=== PATIENT | male | born 1990 | race Two or more races ===

== ENCOUNTER 2018-04-20 19:33 | Emergency (ER) | payer OTHER ==
[2018-04-20] MEDS ORDERED: levETIRAcetam 500 MG/5 ML INJECTION VIAL IVPB ONE ×2 (19:45→19:55)
[2018-04-20 19:46] VITALS: BP 119/52; PULSE 74; TEMP 98.2; BMI 25.8
--- NOTE | 2018-04-20 19:51 | PDOC ---
History of Present Illness - General Chief Complaint: Seizure Stated Complaint: SEIZURE Time Seen by Provider: 04/20/18 19:39 History Source: EMS, Family Exam Limitations: Clinical Condition - History of Present Illness Initial Comments: 04/20/18 19:51 The patient is a 27M with a PMH of seizures who presents to the ER BIBA after having a witnessed seizure. The girlfriend is in the room and is providing the history as the patient is post-ictal and cannot provide any history. The girlfriend states that the patient told her that he was feeling a seizure coming on. She sat him down in a chair and she noted that his head turned and his R arm became contracted, then he had generalized shaking and was immediately post ictal. She stated that she is unsure if he urinated or defecated on himself but he did bite his tongue. Past History - Past Medical History Allergies/Adverse Reactions: Allergies Allergy/AdvReac Type Severity Reaction Status Date / Time No Known Allergies Allergy Verified 04/20/18 19:46 Home Medications: Ambulatory Orders levETIRAcetam [Keppra -] 500 mg PO BID 04/20/18 COPD: No Seizures: Yes - Suicide/Smoking/Psychosocial Hx Smoking History: Never smoked Review of Systems - Review of Systems Able to Perform ROS?: No (pt is post-ictal) Is the patient limited Singaporean proficient: No *Physical Exam - Vital Signs Last Vital Signs Temp Pulse Resp BP Pulse Ox 98.2 F 74 18 119/52 95 04/20/18 19:44 04/20/18 19:44 04/20/18 19:44 04/20/18 19:44 04/20/18 19:44 - Physical Exam Comments: 04/20/18 20:00 GENERAL: Well developed, well nourished. Asleep, arousable to physical and verbal stimulation. Vomit noted on shirt. HEENT: Normocephalic, atraumatic. Hearing grossly normal. Superficial tongue laceration on anterior lateral tongue. Moist mucous membranes. PERRLA, EOMI. No conjunctival pallor. Sclera are non-icteric. NECK: Supple. Full ROM. No JVD. CARDIOVASCULAR: Regular rate and rhythm. No murmurs, rubs, or gallops. PULMONARY: No evidence of respiratory distress. Lungs clear to auscultation bilaterally. No wheezing, rales or rhonchi. ABDOMINAL: Soft. Non-tender. Non-distended. No rebound or guarding. MUSCULOSKELETAL: Normal range of motion at all joints. No bony deformities or tenderness. EXTREMITIES: No cyanosis. No clubbing. No edema. No calf tenderness or swelling. SKIN: Warm and dry. Normal capillary refill. No rashes. No jaundice. NEUROLOGICAL: Asleep, but arousable to physical and verbal stimulation. PSYCHIATRIC: Cooperative. Lethargic. ED Treatment Course - LABORATORY CBC & Chemistry Diagram: 04/20/18 19:50 04/20/18 23:10 Medical Decision Making - Medical Decision Making 04/20/18 20:02 The patient is a 27M with a PMH of seizures on Keppra who was BIBA after having a witnessed seizure. He did not hit his head. His girlfriend states that he did not take his medications today. Will order labs. Pending labwork. Will give keppra. 04/20/18 21:25 CBC WNL. CMP showing MG and Cr bumps with CK of 767, likely 2/2 seizure. WIll give fluids and reassess. 04/20/18 23:55 Repeat CMP showing normalization of electrolyte abnormalities. Pt awake and alert. Will d/c with neurology f/u. *DC/Admit/Observation/Transfer Diagnosis at time of Disposition: Seizure - Discharge Dispostion Disposition: HOME Condition at time of disposition: Stable Decision to Admit order: No - Referrals Referrals: Abram Connolly DO [Staff Physician] - - Patient Instructions Printed Discharge Instructions: DI for Seizure Disorder -- Adult Additional Instructions: Please follow up with your primary care physician in 2-3 days. Also, follow up with the neurologist, Dr. Connolly, in 1-3 days as well. Please return to the ER if you have any signs or symptoms of chest pain, shortness of breath, uncontrollable fever, chills, nausea, vomiting, numbness, tingling, or weakness in any part of your body, changes in vision, or slurred speech. Please take your medications as prescribed. Please return to the ER if symptoms persist, worsen, or new symptoms arise. - Post Discharge Activity
[2018-04-20 20:06] LABS: BASO % 0.8 % (0-2.0); EOS % 1.5 % (0-4.5); HEMATOCRIT 46.1 % (35.4-49); HEMOGLOBIN 14.8 GM/dL (11.7-16.9); MCH 27.1 pg (25.7-33.7); MCHC 32.2 g/dl (32.0-35.9); MEAN CELL VOLUME 84.3 fl (80-96); MEAN PLT VOLUME 7.6 fl (7.5-11.1); MONO % 8.4 % (3.8-10.2); NEUT % 34.3 % (42.8-82.8); PLATELET COUNT 254 K/MM3 (134-434); RBC 5.46 M/mm3 (4.00-5.60); RDW 13.5 % (11.9-15.9); WHITE BLOOD COUNT 11.2 K/mm3 (4.0-10.0)
--- NOTE | 2018-04-20 20:16 | PDOC ---
Attending Attestation - Physicial Exam PE: 04/20/18 21:44 GENERAL: Well-appearing, well-nourished. No apparent distress. HEENT: Normocephalic, atraumatic. PERRL, EOM intact. CARDIOVASCULAR: Normal S1, S2. Regular rate and rhythm. PULMONARY: Clear to auscultation bilaterally. ABDOMEN: Soft, non-distended, non-tender. EXTREMITIES: Normal ROM in all four extremities. No gross deformities. SKIN: Warm, dry. No rash NEUROLOGICAL: No focal neurological deficits. <Daniela Adam - Last Filed: 04/20/18 21:44> - Resident Resident Name: Thanh Groves - ED Attending Attestation I have performed the following: I have examined & evaluated the patient, The case was reviewed & discussed with the resident, I agree w/resident's findings & plan, Exceptions are as noted - HPI HPI: 04/20/18 20:14 Known h/o seizure, had witnessed seizure. Witness by girlfriend. Takes Keppra.. Didn't take it this evening. Didn't hit his head - Medical Decision Making 04/21/18 19:17 Pt was treated and released <Jon Mishra - Last Filed: 04/21/18 19:17>
[2018-04-20 20:38] LABS: ALBUMIN 4.6 g/dl (3.4-5.0); ALK PHOS 65 U/L (45-117); ANION GAP 22 MMOL/L (8-16); BILIRUBIN,TOTAL 0.2 mg/dL (0.2-1.0); BLOOD UREA NITROGEN 18 mg/dL (7-18); CALCIUM 9.2 mg/dL (8.5-10.1); CHLORIDE 106 mmol/L (98-107); CO2 13 mmol/L (21-32); CREATININE 1.4 mg/dL (0.7-1.3); GLUCOSE,RANDOM 114 mg/dL (74-106); MAGNESIUM 3.1 mg/dL (1.8-2.4); POTASSIUM 4.3 mmol/L (3.5-5.1); SGOT/AST 42 U/L (15-37); SGPT/ALT 50 U/L (12-78); SODIUM 141 mmol/L (136-145); TOT PROT 8.6 g/dl (6.4-8.2)
[2018-04-20] MEDS ORDERED: SODIUM CHLORIDE 0.9% 1000 ML INFUS.BAG IV ONE (20:44)
[2018-04-20 21:08] LABS: PLATELET ESTIMATE ADEQUATE
[2018-04-20] MEDS ORDERED: ACETAMINOPHEN 1000 MG/100 ML VIAL (NON FORMULARY) IVPB ONE (21:49)
[2018-04-20] MEDS ORDERED: ACETAMINOPHEN INJECTION 100 ML IVPB ONE (21:56)
[2018-04-20 23:44] LABS: ALBUMIN 3.9 g/dl (3.4-5.0); ANION GAP 5 MMOL/L (8-16); BILIRUBIN,TOTAL 0.2 mg/dL (0.2-1.0); BLOOD UREA NITROGEN 16 mg/dL (7-18); CALCIUM 8.2 mg/dL (8.5-10.1); CHLORIDE 108 mmol/L (98-107); CO2 27 mmol/L (21-32); CREATININE 1.2 mg/dL (0.7-1.3); GLUCOSE,RANDOM 115 mg/dL (74-106); POTASSIUM 3.9 mmol/L (3.5-5.1); SGPT/ALT 41 U/L (12-78); SODIUM 140 mmol/L (136-145); TOT PROT 7.2 g/dl (6.4-8.2)
[2018-04-20 23:46] LABS: ALK PHOS 51 U/L (45-117); SGOT/AST 36 U/L (15-37)
== END 2018-04-21 00:26 | disposition home or self-care (01) ==
LOC: JER 19:33
PROC: 3E033NZ Introduction of Analgesics, Hypnotics, Sedatives into Peripheral Vein, Percutaneous Approach (ICD-10-PCS; principal; 2018-04-20)
PROC: 3E033GC Introduction of Other Therapeutic Substance into Peripheral Vein, Percutaneous Approach (ICD-10-PCS; 2018-04-20)
DX: G40.909 Epilepsy, unspecified, not intractable, without status epilepticus (principal)
CPT/HCPCS: 36415; 80053; 82550; 82553; 83735; 85025; 99282-25; J0131; J7030

== ENCOUNTER 2018-10-16 16:51 | Emergency (ER) | payer OTHER ==
[2018-10-16 17:31] VITALS: BP 118/75; PULSE 88; TEMP 97; BMI 18.4
--- NOTE | 2018-10-16 17:31 | PDOC ---
Rapid Medical Evaluation Chief Complaint: Laceration Time Seen by Provider: 10/16/18 17:29 Medical Evaluation: Allergies Allergy/AdvReac Type Severity Reaction Status Date / Time No Known Allergies Allergy Verified 10/16/18 17:29 10/16/18 17:29 I have performed a brief in-person evaluation of this patient. The patient presents with a chief complaint of: L 3rd lac while at work Pertinent physical exam findings:superficial lac I have ordered the following:nothing The patient will proceed to the ED for further evaluation. Discharge Disposition - Diagnosis Finger laceration Qualifiers: Encounter type: initial encounter Finger: middle finger Damage to nail status: without damage Foreign body presence: without foreign body Laterality: left Qualified Code(s): S61.213A - Laceration without foreign body of left middle finger without damage to nail, initial encounter - Referrals - Patient Instructions - Post Discharge Activity
--- NOTE | 2018-10-16 17:55 | PDOC ---
History of Present Illness - General Chief Complaint: Laceration Stated Complaint: LAC Time Seen by Provider: 10/16/18 17:29 History Source: Patient Exam Limitations: No Limitations - History of Present Illness Initial Comments: 10/16/18 17:50 Patient came to evaluation left third digit laceration. Slipped while using a knife at work and inside the lateral aspect of 3rd middle digit Occurred: reports: just prior to arrival, this afternoon Severity: reports: mild Pain Location: reports: upper extremity Past History - Travel Traveled outside of the country in the last 30 days: No Close contact w/someone who was outside of country & ill: No - Past Medical History Allergies/Adverse Reactions: Allergies Allergy/AdvReac Type Severity Reaction Status Date / Time No Known Allergies Allergy Verified 10/16/18 17:31 Home Medications: Ambulatory Orders levETIRAcetam [Keppra -] 500 mg PO BID 04/20/18 levETIRAcetam [Keppra -] 500 mg PO BID #14 tablet 10/16/18 COPD: No Seizures: Yes - Suicide/Smoking/Psychosocial Hx Smoking History: Never smoked Have you smoked in the past 12 months: No Information on smoking cessation initiated: No Hx Alcohol Use: No Drug/Substance Use Hx: No Review of Systems - Review of Systems Able to Perform ROS?: Yes Is the patient limited Hungarian proficient: Yes Constitutional: Yes: Symptoms Reported, See HPI HEENTM: No: Symptoms Reported Musculoskeletal: Yes: Symptoms Reported, See HPI Integumentary: Yes: Symptoms Reported, See HPI, Lesions All Other Systems: Reviewed and Negative *Physical Exam - Vital Signs Last Vital Signs Temp Pulse Resp BP Pulse Ox 97.0 F L 88 16 118/75 100 10/16/18 17:00 10/16/18 17:00 10/16/18 17:00 10/16/18 17:00 10/16/18 17:00 - Physical Exam General Appearance: Yes: Nourished, Appropriately Dressed, Apparent Distress HEENT: positive: DREA, Normal ENT Inspection, TMs Normal, Pharynx Normal Neck: positive: Supple Extremity: positive: Normal Capillary Refill, Normal Range of Motion, Other (on centimeter laceration to the middle phalanx ulnar aspect of the left third digit. No nail involvement. Has full range of motion and strength against resistance.) Integumentary: positive: Normal Color Neurologic: positive: database reporting consultant II-XII NML intact, Fully Oriented, Alert, Normal Mood/ Affect, Normal Response, Motor Strength 5/5 Moderate Sedation - Procedure Monitoring Vital Signs: Procedure Monitoring Vital Signs Temperature 97.0 F L 10/16/18 17:00 Pulse Rate 88 10/16/18 17:00 Respiratory Rate 16 10/16/18 17:00 Blood Pressure 118/75 10/16/18 17:00 O2 Sat by Pulse Oximetry (%) 100 10/16/18 17:00 Procedures - Laceration/Wound Repair Left Finger Wound Length: to 2.5 cm Wound Explored: clean Wound's Depth, Shape: superficial Irrigated w/ Saline: Yes Betadine Prep: Yes Anesthesia: 1% Lidocaine Wound Repaired With: Sutures Suture Size/Type: 5:0 Number of Sutures: 4 Sterile Dressing Applied: Yes Splint Applied: Yes Progress Note - Progress Note Progress Note: Finger laceration repaired *DC/Admit/Observation/Transfer Diagnosis at time of Disposition: Finger laceration Qualifiers: Encounter type: initial encounter Finger: middle finger Damage to nail status: without damage Foreign body presence: without foreign body Laterality: left Qualified Code(s): S61.213A - Laceration without foreign body of left middle finger without damage to nail, initial encounter - Discharge Dispostion Disposition: HOME Condition at time of disposition: Stable Decision to Admit order: No - Referrals - Patient Instructions Printed Discharge Instructions: DI for Laceration Repair Additional Instructions: Rest, elevate, avoid strenuous activity or heavy lifting until sutures are removed Leave dressing on for the next 24 hours, Then may remove dressing gently and wash area with soap and water. Reapply bacitracin ointment and dressing daily for the next 5 days On day #6 keep the wound protected and cover as needed until sutures are removed allowing wound to start to dry May use Tylenol or Motrin for pain relief Suture removal in : 7-10 Days - Post Discharge Activity Forms/Work/School Notes: Back to Work
== END 2018-10-16 18:16 | disposition home or self-care (01) ==
LOC: JERFT 16:51
PROC: 0HQGXZZ Repair Left Hand Skin, External Approach (ICD-10-PCS; principal; 2018-10-16)
DX: S61.213A Laceration without foreign body of left middle finger without damage to nail, initial encounter (principal); W26.0XXA Contact with knife, initial encounter; Y93.89 Activity, other specified; Y99.0 Civilian activity done for income or pay; Y92.26 Movie house or cinema as the place of occurrence of the external cause
CPT/HCPCS: 99281-25

== ENCOUNTER 2018-10-22 15:12 | Emergency (ER) | payer OTHER ==
[2018-10-22 15:15] VITALS: BP 116/71; PULSE 71; TEMP 97.9; BMI 23.6
--- NOTE | 2018-10-22 15:17 | PDOC ---
Rapid Medical Evaluation Chief Complaint: Suture/Staple Removal(Here) Time Seen by Provider: 10/22/18 15:14 Medical Evaluation: Allergies Allergy/AdvReac Type Severity Reaction Status Date / Time No Known Allergies Allergy Verified 10/16/18 17:31 10/22/18 15:14 The patient presents with a chief complaint of: suture removal of left 3 rd digit, no complaints I have performed a brief in-person evaluation of this patient: area healed Pertinent physical exam findings: ambulatory, vss I have ordered the following: none The patient will proceed to the ED for further evaluation. Discharge Disposition - Diagnosis Finger laceration - Referrals - Patient Instructions - Post Discharge Activity
--- NOTE | 2018-10-22 15:33 | PDOC ---
Suture Removal/Wound Check HPI - History of Present Illness Chief Complaint: Suture/Staple Removal(Here) Stated Complaint: REMOVE STITCHES Time Seen by Provider: 10/22/18 15:14 History Source: Yes: Patient Exam Limitations: Yes: Clinical Condition Treated at: [facility] Date of Last ED visit: 10/16/18 - Previous ED Treatment Type of procedure performed on last visit: Yes: Laceration Repair Tetanus Immunization: Yes: Up to Date Antibiotics Prescribed: Yes Past History - Past Medical History Allergies/Adverse Reactions: Allergies Allergy/AdvReac Type Severity Reaction Status Date / Time No Known Allergies Allergy Verified 10/16/18 17:31 Home Medications: Ambulatory Orders levETIRAcetam [Keppra -] 500 mg PO BID 04/20/18 levETIRAcetam [Keppra -] 500 mg PO BID #14 tablet 10/16/18 COPD: No Seizures: Yes - Suicide/Smoking/Psychosocial Hx Smoking History: Never smoked Have you smoked in the past 12 months: No Hx Alcohol Use: No Drug/Substance Use Hx: No Suture Removal/Wound Check PE - Physical Exam Laceration/Wound Check Symptoms: reports: None Current Severity Level: None Location of Laceration/Wound: left: Finger (middle finger) Pain Radiation: None *Review of Systems - Review of Systems Able to Perform ROS?: Yes Constitutional: No: Chills, Fever HEENTM: No: Symptoms Reported Respiratory: No: Symptoms reported Cardiac (ROS): No: Symptoms Reported ABD/GI: No: Symptoms Reported Musculoskeletal: Yes: See HPI, Muscle Pain (mild to laceration site) Integumentary: Yes: See HPI, Other (laceration to lateral aspect of left middle finger with suture in place). No: Change in Color, Erythema, Lumps, Pruritus Neurological: No: Numbness, Paresthesia, Tingling All Other Systems: Reviewed and Negative *Physical Exam - Vital Signs Last Vital Signs Temp Pulse Resp BP Pulse Ox 97.9 F 71 18 116/71 98 10/22/18 15:14 10/22/18 15:14 10/22/18 15:14 10/22/18 15:14 10/22/18 15:14 - Physical Exam Comments: 10/22/18 15:28 GENERAL: Well developed, well nourished. Awake and alert. No acute distress. Supple. Full ROM. CARDIOVASCULAR: Regular rate and rhythm. No murmurs, rubs, or gallops. Distal pulses are 2+ and symmetric. PULMONARY: No evidence of respiratory distress. Lungs clear to auscultation bilaterally. No wheezing, rales or rhonchi. ABDOMINAL: Soft. Non-tender. Non-distended. No rebound or guarding. No organomegaly. Normoactive bowel sounds. MUSCULOSKELETAL SKIN: Well healed 2 cm linear laceration to lateral aspect of left pinna finger. No erythema or drainage to wound site with no wound dehiscence or evidence of wound infection.Warm and dry. Normal capillary refill. NEUROLOGICAL: Alert, awake, appropriate. Gait is normal without ataxia. PSYCHIATRIC: Cooperative. Good eye contact. Appropriate mood General Appearance: Yes: Nourished, Appropriately Dressed. No: Apparent Distress Moderate Sedation - Procedure Monitoring Vital Signs: Procedure Monitoring Vital Signs Temperature 97.9 F 10/22/18 15:14 Pulse Rate 71 10/22/18 15:14 Respiratory Rate 18 10/22/18 15:14 Blood Pressure 116/71 10/22/18 15:14 O2 Sat by Pulse Oximetry (%) 98 10/22/18 15:14 Medical Decision Making - Medical Decision Making 10/22/18 15:31 Patient presented for suture removal status post presenting 6 days ago with laceration to left middle finger requiring suture placement. Exam significant for well-healed 2 cm laceration to lateral aspect of left middle finger with [address] removed without complication was suture removal kit and bacitracin applied to wound. Patient educated on home wound care. Wound covered with adhesive bandage. Patient is stable for discharge *DC/Admit/Observation/Transfer Diagnosis at time of Disposition: Finger laceration Qualifiers: Encounter type: subsequent encounter Finger: middle finger Damage to nail status: without damage Foreign body presence: without foreign body Laterality: left Qualified Code(s): S61.213D - Laceration without foreign body of left middle finger without damage to nail, subsequent encounter - Discharge Dispostion Disposition: HOME Condition at time of disposition: Stable Decision to Admit order: No - Referrals - Patient Instructions Printed Discharge Instructions: DI for Suture Removal Additional Instructions: Keep putting bacitracin to wound twice a day on to fully healed. Take Motrin as needed for pain - Post Discharge Activity
== END 2018-10-22 15:42 | disposition home or self-care (01) ==
LOC: JERFT 15:12
DX: Z48.817 Encounter for surgical aftercare following surgery on the skin and subcutaneous tissue (principal); Z48.02 Encounter for removal of sutures; S61.213D Laceration without foreign body of left middle finger without damage to nail, subsequent encounter; W26.0XXD Contact with knife, subsequent encounter
CPT/HCPCS: 99281-25